=== PATIENT | male | born 1985 | race Caucasian/White ===

== ENCOUNTER 2018-11-17 21:22 | Emergency (ER) | payer MEDICAID, SELFPAY ==
[2018-11-17 21:24] VITALS: BP 103/78; PULSE 90; RESP 22; TEMP 35.9; O2SAT 99; BMI 26.4
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
--- NOTE | 2018-11-17 22:17 | ED.RN ---
PT YELLING AND CURSING. PT ATTEMPTING TO WALK OUT OF THE ROOM TO GO INTO OTHER PT ROOMS. PT INFORMED HE NEEDS TO STAY IN HIS ROOM. PT YELLING AT OTHER PTS. PT THREATENING TO BREAK THE KNEES ON ANOTHER PT. PT REQUESTING TO SEE THE MD. PT INFORMED THAT CT ORDERS HAVE BEEN ENTERED. PT REFUSING TO HAVE CT UNTIL HE RECEIVES PAIN MEDICATION. PT STATES YOU GUYS ARE NOT HELPING. THIS NURSE INFORMED THE PT THAT ORDERS ARE ENTERED AND IMAGING IS HERE TO TAKE THE PT FOR CT. PT CONTINUES TO REFUSE. PT CONTINUES TO YELL AND ARGUE. PD CALLED FOR THE PT.
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
[2018-11-17] MEDS: Diphth,Pertuss(Acell),Tet Vac 0.5 ML Vial IM (22:34)
[2018-11-17] MEDS: Lidocaine/Epi/Tetracaine 50 ML 1 APPLIC TOPICAL (22:36)
--- NOTE | 2018-11-17 22:37 | ED.RN ---
PT REQUESTING TO SPEAK WITH THE PATIENT ADVOCATE. NURSING STOCK GRADER IN THE ROOM
[2018-11-17] MEDS: morphine 10 MG/ML Syringe 8 MG IM (22:50)
[2018-11-18 00:46] VITALS: BP 110/77; PULSE 73; RESP 16; O2SAT 98
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
[2018-11-18] MEDS: HYDROcodone Bitartrate/Apap 5/325 Tablet PO (01:01)
--- NOTE | 2018-11-18 01:04 | ED.RN ---
PER DR. FOSS PT IS NOT TO LEAVE AT THIS TIME UNTIL THE SIDE EFFECTS FROM THE PAIN MEDS WEAR OFF, WILL KEEP MONITORING THE PT UNTIL HE IS ALERT AND AWAKE. PT HAS NO FURTHER NEEDS AT THIS TIME.
[2018-11-18 03:29] VITALS: BP 115/70; PULSE 72; RESP 16; O2SAT 98
[2018-11-18] MEDS: morphine 8 MG/ML Syringe IM (05:37)
[2018-11-18 05:38] VITALS: BP 111/79; PULSE 73; RESP 17; O2SAT 100
--- NOTE | 2018-11-18 05:46 | ED.RN ---
PT AWAKE AND STATING HE IS IN PAIN. DR. MEADOWS AWARE AND ORDERED 8MG OF MORPHINE. PT UNHAPPY ABOUT DISCHARGE PLANS DR. MEADOWS AWARE AND CURRENTLY SPEAKING TO PT.
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
== END 2018-11-18 06:34 | disposition home or self-care (01) ==
PROVIDERS: Emergency Provider Emergency Medicine
DX: S02.40FB Zygomatic fracture, left side, initial encounter for open fracture (principal); S01.81XA Laceration without foreign body of other part of head, initial encounter; Y00.XXXA Assault by blunt object, initial encounter; Y93.89 Activity, other specified; Y92.9 Unspecified place or not applicable; Z72.0 Tobacco use
CPT/HCPCS: 12013; 70450; 70486; 90715; 96372; 99285

== ENCOUNTER 2018-12-02 17:24 | Emergency (ER) | payer MEDICAID, SELFPAY ==
[2018-12-02 17:26] VITALS: BP 128/92; PULSE 107; RESP 17; TEMP 36.7; O2SAT 97; BMI 22.5
--- NOTE | 2018-12-02 17:50 | RAD_ITS ---
STUDY: X-RAY CHEST REASON FOR EXAM: Male, 33 years old. Productive cough. TECHNIQUE: PA and lateral views of the chest. COMPARISON: None. FINDINGS: The lungs are clear and expanded. There is no demonstrated pleural abnormality. Normal size heart. Normal mediastinum and angela. Normal visualized pulmonary arteries. Normal visualized aortic arch and descending thoracic aorta. Normal visualized thoracic spine. Normal visualized ribs, clavicles, and shoulders. There is no demonstrated abnormality of the visualized soft tissue structures of the upper abdomen. RAD/Chest PA and Lateral IMPRESSION: No evidence of focal airspace disease. Electronically Signed: Juvencio Billings DO at 19:08 EDT , Service support ,
[2018-12-02] MEDS: fentaNYL 25 MCG Patch TRANSDERM. (18:01)
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
--- NOTE | 2018-12-02 18:35 | ED.VISSUMM ---
- ER Visit Summary Date of Service: 12/02/18 Chief Complaint: [] History of Present Illness: The patient is a 33 M [] Physical Examination: [] Test Results: [] Emergency Department Course and Treatment: [] Treatment Plan: [] Disposition: [] Impression: [] This note was generated with [employer] dictation software. It may contain incorrect words, spelling, and punctuation that were not noted in review of the chart prior to signing ED Disposition - Plan for ED Patient: Disposition: Home or Assisted Living Diagnosis: Acute bronchitis, Fracture of left zygomatic arch with delayed healing Instructions: ED URI Viral, ED Fx Face Referrals: Bright Cuba MD [STAFF PHYSICIAN] - As soon as possible Care Physician,No Primary [Primary Care Provider] - Additional Instructions: It is in your best interest to quit smoking.
[2018-12-02 18:44] VITALS: BP 133/88; PULSE 78; RESP 15; O2SAT 97
== END 2018-12-02 18:51 | disposition home or self-care (01) ==
LOC: ED 18:48
PROVIDERS: Emergency Provider Emergency Medicine
DX: J20.9 Acute bronchitis, unspecified (principal); S02.40FA Zygomatic fracture, left side, initial encounter for closed fracture; Y09 Assault by unspecified means; Y93.89 Activity, other specified; Y92.9 Unspecified place or not applicable; F17.200 Nicotine dependence, unspecified, uncomplicated
CPT/HCPCS: 71046; 99283